=== PATIENT | female | born 1950 | race Two or more races ===

== ENCOUNTER → 2024-12-24 | Outpatient (CLI) | payer MEDICARE, BC, SELFPAY ==
--- NOTE | 2024-12-24 10:39 | XR_ITS ---
Examination: Shoulder,left, 3 views Technique: Shoulder AP internal rotation, AP external rotation, Y view shoulder, 3 views Exam date and time :December 24, 2024 1054 hours INDICATIONS: Onset left shoulder pain beginning 2 months ago. FINDINGS: Moderate osteopenia. Moderate narrowing glenohumeral joint. No shoulder fracture or dislocation. No calcific tendinitis IMPRESSION: Moderate narrowing glenohumeral joint
== END | disposition home or self-care (01) ==
LOC: CDIM 10:25
PROVIDERS: PCP Internal Medicine; Referring Provider Internal Medicine; Visit Provider Internal Medicine
DX: M25.812 Other specified joint disorders, left shoulder (principal)
CPT/HCPCS: 73030

== ENCOUNTER → 2025-03-13 | Outpatient (CLI) | payer MEDICARE, BC, SELFPAY ==
--- NOTE | 2025-03-13 11:00 | XR_ITS ---
Examination: Screening digital mammography, bilateral Computer aided detection 3-D breast Tomosynthesis, bilateral Date and time of exam: March 13, 2025 1053 hours Compared to mammograms dating to July 24, 2019 Indication: Screening Technique: Nonmagnified MLO, CC views of the breasts to been obtained, reconstructed from 3-D Tomosynthesis images. R2 computer aided detection program utilized for evaluation of suspicious masses and/or abnormal calcifications. 3-D Tomosynthesis images obtained. Findings: Scattered areas of fibroglandular density. Benign calcifications. No interval suspicious masses Impression: BI-RADS category II: Benign Findings. Recommend 1 year follow-up mammogram.
== END | disposition home or self-care (01) ==
LOC: CDIM 10:34
PROVIDERS: PCP Internal Medicine; Referring Provider Internal Medicine; Visit Provider Internal Medicine
DX: Z12.31 Encounter for screening mammogram for malignant neoplasm of breast (principal); R92.323 Mammographic fibroglandular density, bilateral breasts; R92.1 Mammographic calcification found on diagnostic imaging of breast
CPT/HCPCS: 77063; 77067

== ENCOUNTER 2025-04-29 07:16 | Emergency (ER) | payer MEDICARE, BC, SELFPAY ==
[2025-04-29 07:32] VITALS: BP 148/80; BP 180/75; PULSE 68; RESP 18; O2SAT 95
--- NOTE | 2025-04-29 07:50 | PD.EDRME ---
Rapid Medical Screening Exam RME Arrival date/time: 04/29/25 07:16 Chief Complaint: Dizziness Vital signs: Vital Signs Pulse Rate 68 04/29/25 07:32 Respiratory Rate 18 04/29/25 07:32 Blood Pressure 180/75 H 04/29/25 07:32 Pulse Oximetry (%) 95 04/29/25 07:32 Oxygen Delivery Method Room Air 04/29/25 07:32 Pulse ox room air 95% Vital signs reviewed by provider: Yes RME Narrative: 75-year-old female presents to urgent care with complaint of being dizzy that began this last . Patient was believed to be dehydrated for which she was taking p.o. electrolytes. Today she awoke to dizziness with nausea. Patient had been seen by primary care physician who requested labs. Patient presents with lab slip.
[2025-04-29 08:19] LABS: Basophils # (Auto) 0.0 Thou/mm3 (0.0-0.2); Basophils % (Auto) 1 % (0-2.5); Eosinophils # (Auto) 0.2 Thou/mm3 (0.0-0.5); Eosinophils % (Auto) 3 % (0-10); Hematocrit 39.3 % (36.0-46.0); Hemoglobin 12.5 g/dL (12.0-16.0); Immature Granulocytes Auto 0.02 Thou/mm3 (0.00-0.00); Lymphocytes # (Auto) 1.6 Thou/mm3 (1.0-4.8); Lymphocytes % (Auto) 22 % (10-50); Mean Corpuscular HGB Conc 31.8 g/dl (31.0-37.0); Mean Corpuscular Hemoglobin 26.4 pg (25.0-35.0); Mean Corpuscular Volume 83 fL (80-100); Monocytes # (Auto) 0.6 Thou/mm3 (0.0-0.8); Monocytes % (Auto) 8 % (0-12); Neutrophils # (Auto) 4.7 Thou/mm3 (1.8-7.7); Neutrophils % (Auto) 66 % (37-80); Nucleated Red Blood Cell # 0.00 Thou/mm3 (0.00-0.00); Nucleated Red Blood Cell % 0 /100 WBC (0); Platelet Count 233 Thou/mm3 (140-440); RDW Standard Deviation 45.0 fL (36.4-46.3); Red Blood Count 4.73 Miln/mm3 (4.00-5.20); White Blood Count 7.2 Thou/mm3 (3.6-11.0)
[2025-04-29 08:39] LABS: Alanine Aminotransferase 22 U/L (10-49); Albumin, Serum 4.5 gm/dL (3.4-4.8); Albumin/Globulin Ratio 1.9 (1.2-2.2); Alkaline Phosphatase 114 U/L (46-116); Anion Gap 9 (7-16); Aspartate Amino Transferase 38 U/L (0-34); BUN/Creatinine Ratio 13 Ratio (12-20); Bilirubin,Total 0.7 mg/dL (0.3-1.2); Blood Urea Nitrogen 10 mg/dL (9-23); Calcium 9.8 mg/dL (8.3-10.6); Calcium (Corrected) 9.8 mg/dL (8.5-10.1); Carbon Dioxide 26.9 mMol/L (20.0-31.0); Cardiac Risk Estimate 3.8 RATIO (3.7-5.6); Chloride 104 mMol/L (98-107); Cholesterol 159 mg/dL (132-200); Creatinine (Component) 0.8 mg/dL (0.6-1.3); Free T4 (Free Thyroxine) 0.84 ng/dL (0.89-1.76); Globulin 2.4 gm/dL (2.3-3.5); Glucose 113 mg/dL (74-106); HDL Cholesterol 42 mg/dL (40-60); LDL Cholesterol,Calculated 82 mg/dL (0-130); Lipase 26 U/L (12-53); Osmolality,Calculated 279 (275-295); Potassium 4.2 mMol/L (3.4-5.1); Sodium 140 mMol/L (136-145); Thyroid Stimulating Hormone 2.65 uIU/mL (0.55-4.78); Total Protein 6.9 gm/dL (5.7-8.2); Triglycerides 175 mg/dL (30-150); eGFR > 60 See Note
[2025-04-29 09:24] LABS: Collection Type, Urine Clean Catch
[2025-04-29 09:34] LABS: Bilirubin,Urine Negative (Negative); Blood,Urine Negative (Negative); Clarity,Urine Clear (Clear/Hazy); Color,Urine Lt-Yellow (Lt Yel-Yel); Glucose, Urine Negative (Negative); Hyaline Casts,Urine < 1 /hpf (0-1); Ketones,Urine Negative (Negative); Leukocyte Esterase,Urine Negative (Negative); Nitrite,Urine Negative (Negative); PH,Urine 6.0 (5.0-7.0); Protein,Urine Negative (Neg - Trace); RBC,Urine 1 /hpf (0-3); Specific Gravity,Urine 1.017 (1.001-1.035); Squamous Epithelial Cell,Urine 2 /hpf (0-5); Urobilinogen,Urine Negative mg/dL (0.0-1.0); WBC,Urine 2 /hpf (0-5)
[2025-04-29 10:25] VITALS: BP 169/79; PULSE 75; RESP 17; TEMP 36.5; O2SAT 97
--- NOTE | 2025-04-29 11:08 | PD.EDDIZZY ---
ED Dizzyness RME/HPI General Chief Complaint: Dizziness Stated Complaint: DIZZY SINCE LAST SUNDAY, NAUSEA, CLAMMY Arrival date/time: 04/29/25 07:16 Limitations: no limitations RME / HPI RME / HPI Narrative: 75-year-old female presents to urgent care with complaint of being dizzy that began this last . Patient was believed to be dehydrated for which she was taking p.o. electrolytes. Today she awoke to dizziness with nausea. Patient had been seen by primary care physician who requested labs. Patient presents with lab slip. MD complaint: dizziness and lightheadedness Onset (ago): day(s) (7) History of similar episodes: Yes Severity: moderate Relieving factors: nothing and remaining still Exacerbating factors: nothing Related Data Home Medications ?Medication ?Instructions ?Recorded ?Confirmed aspirin 81 mg tablet,delayed 81 mg PO QDAY 02/06/19 02/06/19 release (Aspir-) gabapentin 300 mg capsule 300 mg PO QDAY 02/06/19 02/06/19 ibuprofen 800 mg tablet 1 tab PO TID PRN Pain 02/06/19 02/06/19 lansoprazole 30 mg delayed 30 mg PO QDAY 02/06/19 02/06/19 release,disintegrating tablet metoprolol succinate 50 mg capsule 50 mg PO QDAY 02/06/19 02/06/19 sprinkle, ext. release 24 hr pravastatin 10 mg tablet 10 mg PO QDAY 02/06/19 02/06/19 Allergies Allergy/AdvReac Type Severity Reaction Status Date / Time No Known Allergies Allergy Verified 04/29/25 07:23 Review of Systems Constitutional Constitutional: Reports system reviewed and no additional complaints, except as documented Eyes Eyes: Reports system reviewed and no additional complaints, except as documented, Denies dry eyes, Denies exophthalmos and Reports floaters Cardiovascular Cardiovascular: Denies chest pain with activity and Denies claudication ED Exam Narrative Physical exam: Patient is able to touch index [id number] patient is able to tap heels to shins. The TMs appear well and there is no apparent infectious process taking place. General Limitations: Present no limitations General appearance: Present alert and in no apparent distress Head Head exam: Present atraumatic Eye Eye exam: Present normal appearance and EOMI ENT ENT exam: Present normal exam, normal oropharynx and mucous membranes moist Neck Neck exam: Present normal inspection, full ROM and trachea midline Chest Chest inspection: Present normal inspection and symmetric chest wall rise Abdominal Exam Abdominal exam: Present soft and normal bowel sounds Extremities Exam Extremities exam: Present normal inspection and full ROM Back Exam Back exam: Present normal inspection and full ROM Neurological Exam Neurological exam: Present alert and oriented X3 Psychiatric Psychiatric exam: Present normal affect and normal mood Skin Skin exam: Present warm, dry, intact and normal color Course Course Course Narrative: CBC, CMP, free T4, lipase stat, lipid panel stat, TSH, urinalysis stat Quality Measures none Orders Category Date Time Status CBC Stat Lab 04/29/25 08:04 Completed Comprehensive Metabolic Panel Stat Lab 04/29/25 08:04 Completed Free T4 (Free Thyroxine) Stat Lab 04/29/25 08:04 Completed Lipase Stat Lab 04/29/25 08:04 Completed Lipid Panel Stat Lab 04/29/25 08:04 Completed TSH [Thyroid Stimulating Hormone] Stat Lab 04/29/25 08:04 Completed Urinalysis Stat Lab 04/29/25 08:45 Completed Reevaluation(s) Additional Reevaluation(s): NA Vital Signs Vital signs: Vital Signs Pulse Rate 68 04/29/25 07:32 Respiratory Rate 18 04/29/25 07:32 Blood Pressure 180/75 H 04/29/25 07:32 Pulse Oximetry (%) 95 04/29/25 07:32 Oxygen Delivery Method Room Air 04/29/25 07:32 NA Dizziness MDM Narrative MDM Narrative:: Patient will be discharged in no apparent distress and she is to primary care physician as discussed for follow-up to her vertigo. Patient data External records reviewed:: Other (specify) Clinical information provided by:: none Social determinants that could affect healthcare access:: none Patient has the following chronic illnesses:: Hypertension How is presenting disease/condition affected by chronic disease/condition?: no chronic disease Evaluation data The following diagnostics were reviewed and interpreted by me:: other (specify) Lab and/or radiology exams considered but not ordered:: N/A Interpretation Summary: N/A Medications / Prescriptions Medications or Prescriptions considered but not ordered:: N/A Medication administrations:: N/A Consultations Consultation(s) initiated? (list below): No Diagnosis Most likely diagnosis given after review of the tests above:: N/A Admission Indicated Admission indicated?: not indicated Admission Request Was there a request for admission?: No Disposition Plan Disposition Plan: Discharge Discharge Attestation Discharge Attestation: The patient and all family members were given an opportunity to ask questions and understood the discharge instructions. Discharge instructions specifically effects, indications for sooner follow up or return to the emergency department, and the expected course of current diagnosis. Patient condition: Stable Discharge Plan Plan Patient Disposition: HOME (Self Care) Discharge Disposition comment: Discharge in no apparent distress Patient condition on transfer: Stable Prescriptions/Referrals Prescriptions/Med Rec: No Action ibuprofen 800 mg Tablet 1 tab PO TID PRN (Reason: Pain) aspirin [Aspir-81] 81 mg Tablet,Delayed Release (Dr/Ec) 81 mg PO QDAY pravastatin 10 mg Tablet 10 mg PO QDAY metoprolol succinate 50 mg Capsule,Sprinkle,Er 24hr 50 mg PO QDAY gabapentin 300 mg Capsule 300 mg PO QDAY lansoprazole 30 mg Tablet,Disintegrat, Delay Rel 30 mg PO QDAY Referrals: Latha Clarke MD [Primary Care Provider] - In 1 week Problem List Clinical Impression: Vertigo Patient/Caregiver Discharge Instructions Print Language: Albanian Stand Alone Forms: [employer] Award Info., Patient Portal Info Letter PA/IRON INSTALLER Supervising Physician PA/IRON INSTALLER Supervising Physician: MAUREEN
== END 2025-04-29 11:26 | disposition home or self-care (01) ==
PROVIDERS: Emergency Provider Physician Assistant; PCP Internal Medicine
DX: R42 Dizziness and giddiness (principal)
CPT/HCPCS: 36415; 80053; 80061; 81001; 83690; 84439; 84443; 85025; 99283